=== PATIENT | male | born 1970 | race Caucasian/White ===

== ENCOUNTER → 2022-06-28 | Day surgery (SDC) | payer MEDICAID ==
[~2022-06-28] VITALS: Ht 175.3 cm; Wt 82.6 kg
[~2022-06-28] MED LIST: BUPIVACAINE HCL/PF 0.5% (5MG/ML) 10ML ONE; BUPR300T52 PO; CEFAZOLIN SODIUM 1000MG/VIAL ONE; DOCU-332 PO; EPHEDRINE SULFATE 50MG/ML VIAL ONE; FENTANYL CITRATE/PF 50MCG/ML 2ML VIAL IV PRN; FENTANYL CITRATE/PF 50MCG/ML 2ML VIAL ONE; FLUO20CA39 PO; HYDROMORPHONE HCL/PF 2MG/ML CPJ IV PRN; KETOROLAC 30MG/ML VIAL ONE; LACTATED RINGERS 1,000 ML IV SCH; MEPERIDINE HCL/PF 25MG/ML CPJ IV PRN; MIDAZOLAM HCL 2 MG/2 ML VIAL ONE; MULT-1116 PO; OMEG-118 PO; ONDANSETRON HCL 4MG/2ML INJ ONE; PROPOFOL 200MG/20ML VIAL IV ONE; SKIN ADHESIVE 0.7 GM EA TOP ONE; TERB125S TP
== END | disposition home or self-care (01) ==
LOC: OR 06:04
PROVIDERS: ATTEND Surgery
DX: K40.90 Unilateral inguinal hernia, without obstruction or gangrene, not specified as recurrent (principal); I10 Essential (primary) hypertension; F41.9 Anxiety disorder, unspecified; F32.9 Major depressive disorder, single episode, unspecified; Z79.899 Other long term (current) drug therapy; Z98.890 Other specified postprocedural states; Z20.822 Contact with and (suspected) exposure to COVID-19
CPT/HCPCS: 49505; 87426; C1781; C9803; J0690; J1885; J2250; J2405; J2704; J3010; J3490